=== PATIENT | male | born 1985 | race Caucasian/White ===

== ENCOUNTER 2018-02-18 05:50 | Emergency (ER) | payer OTHER ==
[~2018-02-18] VITALS: Ht 185.4 cm; Wt 80.0 kg
[2018-02-18] MEDS ORDERED: SODIUM CHLORIDE 0.9% 1,000ML IVBOLUS ONE (06:30)
[2018-02-18] MEDS ORDERED: FAMOTIDINE 20 MG/2 ML IVP ONE (06:30)
[2018-02-18] MEDS ORDERED: ONDANSETRON ODT 4 MG PO ONE (06:30)
[2018-02-18] MEDS ORDERED: FAMOTIDINE 20 MG/2 ML ONE (06:39)
[2018-02-18] MEDS ORDERED: ONDANSETRON ODT 4 MG ONE (06:39)
[2018-02-18] MEDS ORDERED: PROMETHAZINE 25 MG/ML, 1ML IM ONE (07:30)
[2018-02-18] MEDS ORDERED: PROMETHAZINE 25 MG/ML, 1ML ONE (07:36)
[2018-02-18 08:32] VITALS: BP 114/59
== END 2018-02-18 08:38 | disposition home or self-care (01) ==
LOC: ED 08:32
DX: K52.9 Noninfective gastroenteritis and colitis, unspecified (principal)
CPT/HCPCS: 96361; 96372; 96374; 99285; J2550; J7030; Q0162; S0028